=== PATIENT | male | born 1980 | race Caucasian/White ===

== ENCOUNTER 2017-07-31 08:51 | Inpatient (IN) | payer OTHER ==
[~2017-07-31] VITALS: Ht 182.9 cm; Wt 60.9 kg
[~2017-07-31 08:51] MED LIST: HYGROTON50 MG PO; NORCO 325 MG-51 TAB PO; ZOFRAN 4MG T4 MG/TAB PO
[2017-08-14] MEDS ORDERED: PARAFON FORTE500 MG PO (14:54)
[2017-08-28] VITALS (11 sets, daily range): BP systolic 90–130; BP diastolic 57–80; PULSE 66–84; TEMP 97.9–99
[2017-08-28 19:00] LABS: BASO % 0.2 % (0.0-2.0); GRAN # 17.2 (1.4-6.5); GRAN % 93.6 % (42.2-75.2); HEMATOCRIT 42.5 % (42.0-52.0); HEMOGLOBIN 13.7 g/dl (13.5-18.0); LYMPH # 0.7 (1.2-3.4); LYMPH % 3.6 % (20.0-51.0); MEAN CELL VOLUME 84 fl (80.0-100.0); MEAN CORPUSCULAR HEMOGLOBIN 27 pg (27.0-31.0); MEAN CORPUSCULAR HGB CONC 32 g/dl (33.0-37.0); MEAN PLATELET VOLUME 10.4 fl (7.4-10.4); MONO # 0.4 (0.1-0.6); MONO % 2.1 % (1.7-9.3); PLATELET COUNT 217 K/mm3 (130-400); RED BLOOD COUNT 5.08 M/mm3 (4.20-5.60); REDCELL DISTRIBUTION WIDTH-CV 13.1 % (11.5-14.5)
[2017-08-28 19:06] LABS: INR 1.4 (0.8-3.0); PROTHROMBIN TIME 15.9 SECONDS (9.7-12.8)
[2017-08-29] VITALS (7 sets, daily range): BP systolic 113–128; BP diastolic 55–79; PULSE 61–77; TEMP 97.8–99
[2017-08-29 07:04] LABS: CALCIUM 8.3 mg/dL (8.4-10.2); CREATININE, serum 0.66 mg/dL (0.66-1.25); MAGNESIUM 1.8 mg/dL (1.6-2.3); PHOSPHOROUS 3.3 mg/dL (2.5-4.5); POTASSIUM 4.4 mmol/L (3.4-5.0)
[2017-08-30 01:04] VITALS: BP 106/56; PULSE 62; TEMP 98
[2017-08-30 05:31] VITALS: BP 105/57; PULSE 58; TEMP 98.1
[2017-08-30 06:59] LABS: HEMATOCRIT 33.7 % (42.0-52.0); HEMOGLOBIN 10.9 g/dl (13.5-18.0)
[2017-08-30 08:47] VITALS: BP 110/69; PULSE 61; TEMP 98.2
[2017-08-30 13:27] VITALS: BP 132/71; PULSE 84; TEMP 97.9
[2017-08-30 17:27] VITALS: BP 130/60; PULSE 88; TEMP 98.2
== END 2017-08-30 19:35 | disposition home or self-care (01) | DRG 330 ==
LOC: INPTSU 08-28 08:57 → SURG 08-28 11:15
PROVIDERS: Surgery
PROC: 0DBP4ZZ Excision of Rectum, Percutaneous Endoscopic Approach (ICD-10-PCS; 2017-08-28)
PROC: 8E0W4CZ Robotic Assisted Procedure of Trunk Region, Percutaneous Endoscopic Approach (ICD-10-PCS; 2017-08-28)
PROC: 0DBN4ZZ Excision of Sigmoid Colon, Percutaneous Endoscopic Approach (ICD-10-PCS; principal; 2017-08-28 11:15)
DX: C18.7 Malignant neoplasm of sigmoid colon (principal); K92.1 Melena; E44.0 Moderate protein-calorie malnutrition; Z68.1 Body mass index [BMI] 19.9 or less, adult; T81.82XA Emphysema (subcutaneous) resulting from a procedure, initial encounter
CPT/HCPCS: A4314; A9284; J0330; J0694; J1100; J1885; J2175; J2250; J2270; J2405; J2704; J2710; J3010; J7050; J7120

== ENCOUNTER 2017-08-16 09:28 | Outpatient (CLI) | payer OTHER ==
[2017-08-16] VITALS (17 sets, daily range): BP systolic 99–136; BP diastolic 60–106; PULSE 46–125
[~2017-08-16] VITALS: Ht 185.4 cm; Wt 62.1 kg
[~2017-08-16 09:28] MED LIST changes: +PARAFON FORTE500 MG PO
== END 2017-08-16 15:30 | disposition home or self-care (01) ==
LOC: COL.RAD 09:28
DX: J95.811 Postprocedural pneumothorax (principal); C18.7 Malignant neoplasm of sigmoid colon; Z90.49 Acquired absence of other specified parts of digestive tract
CPT/HCPCS: J3010